=== PATIENT | female | born 1955 | race Hispanic/Latino ===

== ENCOUNTER 2021-05-01 15:49 | Emergency (ER) | payer OTHER ==
[~2021-05-01] VITALS: Ht 170.2 cm; Wt 70.3 kg
[2021-05-01 16:50] LABS: BASOPHILS % 0.4 % (0.0-1.0); EOSINOPHILS # (AUTO) 0.2 (0.0-0.4); EOSINOPHILS % 2.3 % (0.0-6.0); HEMATOCRIT 37.5 % (34.2-44.1); LYMPHOCYTES # (AUTO) 2.2 (1.0-3.2); MEAN CORPUSCULAR HEMOGLOBIN 28.1 pg (28-32); MEAN CORPUSCULAR VOLUME 87.8 fL (81-99); MONOCYTES # (AUTO) 0.6 (0.2-0.8); MONOCYTES % 7.2 % (4.4-11.3); NEUTROPHILS # (AUTO) 4.7 (2.1-6.9); NEUTROPHILS % 60.7 % (38.7-80.0); PLATELET COUNT 235 x10e3/uL (140-360); RED BLOOD COUNT 4.27 x10e6/uL (3.6-5.1); RED CELL DISTRIBUTION WIDTH 12.5 % (11.7-14.4)
[2021-05-01 17:09] LABS: ALBUMIN 3.9 g/dL (3.5-5.0); ALBUMIN/GLOBULIN RATIO 1.2 (0.8-2.0); ANION GAP 13.5 mmol/L (8-16); CALCIUM 8.7 mg/dL (8.4-10.2); CREATININE, SERUM 0.7 mg/dL (0.57-1.11); POTASSIUM 3.5 mmol/L (3.5-5.1)
[2021-05-01 17:15] LABS: CREATINE KINASE MB 0.9 ng/mL (0-5.0)
[2021-05-01] MEDS ORDERED: IOPAMIDOL 370 MG/ML 200 ML INFUS..BTL INJ ONE (17:45)
[2021-05-01] MEDS ORDERED: SODIUM CHLORIDE 0.9% 50ML 50 ML ONE (17:45)
[2021-05-01] MEDS ORDERED: ONDANSETRON HCL INJ 2MG/ML 2ML 2 MG/ML VIAL IV STA (18:44)
[2021-05-01] MEDS ORDERED: DICYCLOMINE HCL 20 MG/2 ML VIAL IM ONE (18:45)
== END 2021-05-01 21:51 | disposition home or self-care (01) ==
LOC: ER 18:11
DX: R10.11 Right upper quadrant pain (principal); R10.13 Epigastric pain; K80.50 Calculus of bile duct without cholangitis or cholecystitis without obstruction; K80.80 Other cholelithiasis without obstruction
CPT/HCPCS: 36415; 74177; 76705; 80053; 82550; 82553; 83690; 84484; 85025; 99284; C9113; J0500; J2405; Q9967

== ENCOUNTER → 2024-05-19 | Outpatient (REF) | payer OTHER | LOC: MAMMO 15:00 | PROVIDERS: ATTEND Internal Medicine | DX: Z12.31 Encounter for screening mammogram for malignant neoplasm of breast (principal) | CPT/HCPCS: 77067 ==

== ENCOUNTER → 2024-07-13 | Outpatient (RCR) | payer OTHER ==
[~2024-07-13] MED LIST: ACETAMINOPHEN 1000 MG/100 ML 100 ML IV ONE; FAMOTIDINE 20 MG/2 ML VIAL IV ONE; LIDOCAINE HCL (LTA) 4 ML SOLN ONE; METOCLOPRAMIDE HCL 10 MG/2ML VIAL ONE; SUGAMMADEX SODIUM 200 MG/2 ML VIAL IV ONE
== END ==
LOC: PT 06-30 12:56
PROVIDERS: ATTEND Specialist
DX: M17.11 Unilateral primary osteoarthritis, right knee (principal); M25.561 Pain in right knee; M25.661 Stiffness of right knee, not elsewhere classified; M62.81 Muscle weakness (generalized); R26.2 Difficulty in walking, not elsewhere classified
CPT/HCPCS: 97110 ×6; 97161; J0131; J2765

== ENCOUNTER 2024-07-17 10:00 | Outpatient (RCR) | payer OTHER | END 2024-08-13 | LOC: PT 10:00 | PROVIDERS: ATTEND Specialist | DX: M17.11 Unilateral primary osteoarthritis, right knee (principal); M25.561 Pain in right knee; M25.661 Stiffness of right knee, not elsewhere classified; M62.81 Muscle weakness (generalized); R26.2 Difficulty in walking, not elsewhere classified ==